=== PATIENT | male | born 1985 | race Caucasian/White ===

== ENCOUNTER 2018-04-17 01:47 | Emergency (ER) | payer SELFPAY ==
[~2018-04-17] VITALS: Ht 177.8 cm; Wt 79.4 kg
[~2018-04-17 01:47] MED LIST: AZIT-21; DOXY100C2 PO; OXYC-12 PO
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
--- OUTSIDE RECORDS SUMMARY | 2018-04-17 02:02 | XMS REPORT ---
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 Active Problem Acute pharyngitis 462 Active Problem Other and unspecified noninfectious gastroenteritis and colitis 558.9 Active Problem Depressive disorder, not elsewhere classified 311 Active Problem Unspecified disorders of bursae and tendons in shoulder region 726.10 Active Problem Nausea alone 787.02 Active Problem Amphetamine and other psychostimulant dependence, unspecified abuse 304.40 Active Problem Acute sinusitis, unspecified 461.9 Active Problem Pain in joint, shoulder region 719.41 Active Problem Cervicalgia 723.1 Active Assessment Neck pain 723.1 Active Problem Rash and other nonspecific skin eruption 782.1 Active Problem Diarrhea 787.91 Active Problem Esophageal reflux 530.81 Active Problem Anxiety state, unspecified 300.00 Active Problem Superficial injury of cornea 918.1 Active Problem Unspecified episodic mood disorder 296.90 Active Problem Bipolar disorder, unspecified 296.80 Active Medications Medication Code System Code Instructions Start Date End Date Status Dosage Abilify [facility] [address]-01 2 mg July 06, 2014 1 tablet by Oral route 1 time per day [place] [facility] [address]-81 5-325 MG Orally every 6 hrs Dec 16, 2014 1 tablet as needed Tramadol HCl [facility] [address]-19 50 MG Orally every 6 hrs Jan 04, 2015 1 tablet as needed Omeprazole [facility] [address]-01 40 MG Orally Once a day 1 capsule Procedures Procedure Coding System Code Date Office Visit, Est Pt., Level 3 CPT-4 21124 Jan 04, 2015 Vital Signs Date/Time: Jan 04, 2015 Temperature 98 F Weight 236.8 lbs Height 70 in BMI 33.97 Index Blood Pressure Diastolic 92 mmHg Blood Pressure Systolic 140 mmHg Cardiac Monitoring Heart Rate 84 bpm Results No Known Results Summary Purpose eClinicalWorks Submission
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
--- OUTSIDE RECORDS SUMMARY | 2018-04-17 02:03 | XMS REPORT ---
Author Author TC AKINS [facility] eClinical[employer] Address Unknown Phone Unavailable Care Team Providers Care Laborer [employer] Name Role Phone TC AKINS CP Unavailable Allergies No Known Allergies Problems Problem Type Condition Code Onset Dates Condition Status Problem Other and unspecified noninfectious gastroenteritis and colitis 558.9 Active Problem Acute sinusitis, unspecified 461.9 Active Problem Acute pharyngitis 462 Active Problem Other stimulant dependence, 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 Active Problem Nausea alone 787.02 Active Problem Bipolar II disorder F31.81 Active Problem Pain in joint, shoulder region 719.41 Active Problem Cervicalgia 723.1 Active Problem Depressive disorder, not elsewhere classified 311 Active Problem Unspecified disorders of bursae and tendons in shoulder region 726.10 Active Problem Anxiety state, unspecified 300.00 Active Problem Diarrhea 787.91 Active Problem Esophageal reflux 530.81 Active Problem Rash and other nonspecific skin eruption 782.1 Active Problem Superficial injury of cornea 918.1 Active Medications Medication Code System Code Instructions Start Date End Date Status Dosage Tramadol HCl [facility] [id number] 50 MG Orally every 6 hrs Jan 04, 2015 1 tablet as needed Results No Known Results Summary Purpose eClinicalWorks Submission
--- OUTSIDE RECORDS SUMMARY | 2018-04-17 02:03 | XMS REPORT ---
Author Author AXEL ETIENNE [facility] eClinical[employer] Address Unknown Phone Unavailable Care Team Providers Care Operating Cost Clerk Name Role Phone AXEL ETIENNE CP Unavailable Allergies No Known Allergies Problems [...] and tendons in shoulder region 726.10 Active Assessment Other stimulant dependence, 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 Active Problem Anxiety state, unspecified 300.00 Active Problem Diarrhea 787.91 Active Assessment Bipolar II disorder F31.81 Active Problem Esophageal reflux 530.81 Active Problem Rash and other nonspecific skin eruption 782.1 Active Problem Superficial injury of cornea 918.1 Active Medications No Known Medications Procedures Procedure Coding System Code Date Psychotherapy, patient &/family, 45 minutes, established patient CPT-4 26512 Mar 31, 2015 Results No Known Results Summary Purpose eClinicalWorks Submission
--- OUTSIDE RECORDS SUMMARY | 2018-04-17 02:04 | XMS REPORT ---
Author Author AXEL ETIENNE [facility] eClinicalWorks Address Unknown Phone Unavailable Care Team Providers Care Interface Designer Name Role Phone AXEL ETIENNE CP Unavailable Allergies No Known Allergies Problems Problem Type Condition Code Onset Dates Condition Status Problem Superficial injury of cornea 918.1 Active Problem Acute pharyngitis 462 Active Problem Other and unspecified noninfectious gastroenteritis and colitis 558.9 Active Problem Other stimulant dependence, 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 Active Problem Nausea alone 787.02 Active Problem Bipolar II disorder F31.81 Active Problem Cervicalgia 723.1 Active Problem Acute sinusitis, unspecified 461.9 Active Problem Unspecified disorders of bursae and tendons in shoulder region 726.10 Active Problem Pain in joint, shoulder region 719.41 Active Assessment Bipolar II disorder F31.81 Active Problem Rash and other nonspecific skin eruption 782.1 Active Problem Diarrhea 787.91 Active Assessment Other stimulant dependence, 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 Active Problem Esophageal reflux 530.81 Active Medications No Known Medications Procedures Procedure Coding System Code Date Psychotherapy, patient &/family, 45 minutes, established patient CPT-4 72633 May 27, 2015 Results No Known Results Summary Purpose eClinicalWorks Submission
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
--- OUTSIDE RECORDS SUMMARY | 2018-04-17 02:04 | XMS REPORT ---
Author Author AXEL ETIENNE [facility] eClinicalWorks Address Unknown Phone Unavailable Care Team Providers Care Pigment Pumper Name Role Phone AXEL ETIENNE CP Unavailable Allergies No Known Allergies Problems Problem Type Condition Code Onset Dates Condition Status Problem Drug [...] 719.41 Active Problem Cervicalgia 723.1 Active Assessment Bipolar II disorder 296.89 Active Problem Rash and other nonspecific skin eruption 782.1 Active Assessment Amphetamine and other psychostimulant dependence, unspecified abuse 304.40 Active Problem Diarrhea 787.91 Active Problem Esophageal reflux 530.81 Active Problem Anxiety state, unspecified 300.00 Active Problem Superficial injury of cornea 918.1 Active Problem Unspecified episodic mood disorder 296.90 Active Problem Bipolar disorder, unspecified 296.80 Active Medications No Known Medications Procedures Procedure Coding System Code Date Psychotherapy, patient &/family, 30 minutes, established patient CPT-4 33513 Feb 10, 2015 Results No Known Results Summary Purpose eClinicalWorks Submission
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
--- OUTSIDE RECORDS SUMMARY | 2018-04-17 02:04 | XMS REPORT ---
Author Author TC AKINS [facility] eClinicalWorks Address Unknown Phone Unavailable Care Team Providers Care Figure Refinisher And Repairer Name Role Phone TC AKINS CP Unavailable [...] Date End Date Status Dosage Tramadol HCl [facility] [place] [address]-50 50 MG Orally every 6 hrs Jan 04, 2015 1 tablet as needed Results No Known Results Summary Purpose eClinicalWorks Submission
--- OUTSIDE RECORDS SUMMARY | 2018-04-17 02:05 | XMS REPORT ---
Author Author AXEL ETIENNE [facility] eClinicalWorks Address Unknown Phone Unavailable Care Team Providers Care Refinish Technician Name Role Phone AXEL ETIENNE CP Unavailable [...] patient &/family, 45 minutes, established patient CPT-4 23991 Mar 24, 2015 Results No Known Results Summary Purpose eClinicalWorks Submission
--- OUTSIDE RECORDS SUMMARY | 2018-04-17 02:05 | XMS REPORT ---
Author Author TC AKINS [facility] eClinicalWorks Address Unknown Phone Unavailable Care Team Providers Care Home Stager Name Role Phone TC AKINS CP Unavailable [...] Date End Date Status Dosage Tramadol HCl [facility] [address]-66 50 MG Orally every 6 hrs. MUST HAVE APPT FOR FURTHER REFILLS Jan 04, 2015 1 tablet as needed Results No Known Results Summary Purpose eClinicalWorks Submission
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
--- OUTSIDE RECORDS SUMMARY | 2018-04-17 02:05 | XMS REPORT ---
Author Author AXEL ETIENNE [facility] eClinicalWorks Address Unknown Phone Unavailable Care Team Providers Care Service Order Dispatcher Name Role Phone AXEL ETIENNE CP Unavailable Allergies No Known Allergies Problems Problem Type Condition ICD-9 Code Onset [...] patient &/family, 45 minutes, established patient CPT-4 10735 Dec 22, 2014 Results No Known Results Summary Purpose eClinicalWorks Submission
--- OUTSIDE RECORDS SUMMARY | 2018-04-17 02:05 | XMS REPORT ---
Author Author AXEL ETIENNE [facility] eClinicalWorks Address Unknown Phone Unavailable Care Team Providers Care Pathological Technician Name Role Phone AXEL ETIENNE CP [...] patient &/family, 45 minutes, established patient CPT-4 04826 Mar 03, 2015 Results No Known Results Summary Purpose eClinicalWorks Submission
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
--- OUTSIDE RECORDS SUMMARY | 2018-04-17 02:06 | XMS REPORT ---
Author Author YAHAIRA ALATORRE [facility] eClinicalWorks Address Unknown Phone Unavailable Care Team Providers Care Event Coordinator Name Role Phone YAHAIRA ALATORRE CP Unavailable Allergies No Known Allergies Problems [...] 719.41 Active Problem Cervicalgia 723.1 Active Problem Rash and other nonspecific skin eruption 782.1 Active Problem Diarrhea 787.91 Active Problem Esophageal reflux 530.81 Active Problem Anxiety state, unspecified 300.00 Active Problem Superficial injury of cornea 918.1 Active Problem Unspecified episodic mood disorder 296.90 Active Problem Bipolar disorder, unspecified 296.80 Active Medications No Known Medications Results No Known Results Summary Purpose eClinicalWorks Submission
--- OUTSIDE RECORDS SUMMARY | 2018-04-17 02:06 | XMS REPORT ---
Author Author AXEL ETIENNE [facility] eClinicalWorks Address Unknown Phone Unavailable Care Team Providers Care Examination Proctor Name Role Phone AXEL ETIENNE CP Unavailable [...] patient &/family, 45 minutes, established patient CPT-4 66791 Dec 16, 2014 Results No Known Results Summary Purpose eClinicalWorks Submission
--- OUTSIDE RECORDS SUMMARY | 2018-04-17 02:07 | XMS REPORT | Continuity of Care Document ---
Demographics Preferred Language Unknown Marital Status Unknown Latter-Day Affiliation Unknown Race Unknown Ethnic Group Unknown Author Author [facility] Organization [facility] Address Unknown Phone Unavailable Allergies There is no data. Medications There is no data. 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, OPIOID ABUSE, IN REMISSION 01/21/2009 ALBA EVANS APRN 724.3 SCIATICA 01/21/2009 054.10 GENITAL HERPES, UNSPECIFIED 01/21/2009 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, OPIOID ABUSE, IN REMISSION 01/21/2009 724.3 SCIATICA 01/21/2009 ARYAN TERAN APRN R 054.10 GENITAL HERPES, UNSPECIFIED 01/21/2009 ARYAN TERAN APRN R 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, OPIOID ABUSE, IN REMISSION 01/21/2009 ARYAN TERAN APRN R 724.3 SCIATICA 01/21/2009 AXEL ETIENNE PSYD L 054.10 GENITAL HERPES, UNSPECIFIED 01/21/2009 AXEL ETIENNE PSYD L 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, OPIOID ABUSE, IN REMISSION 01/21/2009 AXEL ETIENNE PSYD L 724.3 SCIATICA 01/21/2009 MARV MANUEL DO 054.10 GENITAL HERPES, UNSPECIFIED 01/21/[address] K 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, OPIOID ABUSE, IN REMISSION 01/21/[address] MARV K 724.3 SCIATICA 01/21/2009 ARYAN TERAN APRN R 054.10 GENITAL HERPES, UNSPECIFIED 01/21/2009 ARYAN TERAN APRN R 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, OPIOID ABUSE, IN REMISSION 01/21/2009 ARYAN TERAN APRN R 724.3 SCIATICA 01/21/2009 TC AKINS APRN T 054.10 GENITAL HERPES, UNSPECIFIED 01/21/2009 TC AKINS APRN T 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, OPIOID ABUSE, IN REMISSION 01/21/2009 TC AKINS APRN T 724.3 SCIATICA 01/21/2009 AXEL ETIENNE PSYD ANN L 054.10 GENITAL HERPES, UNSPECIFIED 01/21/2009 AXEL ETIENNE PSYD ANN L 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, OPIOID ABUSE, IN REMISSION 01/21/2009 AXEL ETIENNE PSYD ANN L 724.3 SCIATICA 01/21/2009 EDNA SAHNI APRNINA R 054.10 GENITAL HERPES, UNSPECIFIED 01/21/2009 ERIK SAHNI APRN R 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, OPIOID ABUSE, IN REMISSION 01/21/2009 EDNA SAHNI APRNINA R 724.3 SCIATICA 01/21/2009 AXEL ETIENNE PSYD ANN L 054.10 GENITAL HERPES, UNSPECIFIED 01/21/2009 AXEL ETIENNE PSYD ANN L 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, OPIOID ABUSE, IN REMISSION 01/21/2009 AXEL ETIENNE PSYD ANN L 724.3 SCIATICA 01/21/2009 WHITE DDS, ALLEGRA D 054.10 GENITAL HERPES, UNSPECIFIED 01/21/2009 WHITE DDS, ALLEGRA D 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, OPIOID ABUSE, IN REMISSION 01/21/2009 WHITE DDS, ALLEGRA D 724.3 SCIATICA 01/21/2009 BORA REES ERIK R 054.10 GENITAL HERPES, UNSPECIFIED 01/21/2009 BORA REES ERIK R 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, OPIOID ABUSE, IN REMISSION 01/21/2009 BORA OLIVAREZN, ERIK R 724.3 SCIATICA 01/21/2009 LARA DDS, JOSE 054.10 GENITAL HERPES, UNSPECIFIED 01/21/2009 LARA DDS, JOSE 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, OPIOID ABUSE, IN REMISSION 01/21/2009 LARA DDS, JOSE 724.3 SCIATICA 01/21/2009 MANUEL DO, MRAV K 054.10 GENITAL HERPES, UNSPECIFIED 01/21/2009 MANUEL DO, MARV K 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, OPIOID ABUSE, IN REMISSION 01/21/2009 MANUEL DO, MARV K 724.3 SCIATICA 01/21/2009 AXEL ETIENNE PSYD ANN L 054.10 GENITAL HERPES, UNSPECIFIED 01/21/2009 AXEL ETIENNE PSYD ANN L 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, OPIOID ABUSE, IN REMISSION 01/21/2009 AXEL ETIENNE PSYD ANN L 724.3 SCIATICA 01/21/2009 AXEL ETIENNE PSYD ANN L 054.10 GENITAL HERPES, UNSPECIFIED 01/21/2009 AXEL ETIENNE PSYD ANN L 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, OPIOID ABUSE, IN REMISSION 01/21/2009 AXEL ETIENNE PSYD ANN L 724.3 SCIATICA 01/21/2009 BORA REES, ERIK R 054.10 GENITAL HERPES, UNSPECIFIED 01/21/2009 BORA REES, ERIK R 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, OPIOID ABUSE, IN REMISSION 01/21/2009 BORA REES, ERIK R 724.3 SCIATICA 01/21/2009 AXEL ETIENNE PSYD ANN L 054.10 GENITAL HERPES, UNSPECIFIED 01/21/2009 AXEL ETIENNE PSYD ANN L 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, OPIOID ABUSE, IN REMISSION 01/21/2009 AXEL ETIENNE PSYD ANN L 724.3 SCIATICA 01/21/2009 LAUREN PRICE APRN 054.10 GENITAL HERPES, UNSPECIFIED 01/21/2009 LAUREN PRICE APRN 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, OPIOID ABUSE, IN REMISSION 01/21/2009 LAUREN PRICE APRN 724.3 SCIATICA 01/21/2009 AXEL ETIENNE PSYD L 054.10 GENITAL HERPES, UNSPECIFIED 01/21/2009 AXEL ETIENNE PSYD ANN L 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, OPIOID ABUSE, IN REMISSION 01/21/2009 AXEL ETIENNE PSYD ANN L 724.3 SCIATICA 01/21/2009 YEISON JUAREZ MD 054.10 GENITAL HERPES, UNSPECIFIED 01/21/2009 YEISON JUAREZ MD 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, OPIOID ABUSE, IN REMISSION 01/21/2009 YEISON JUAREZ MD 724.3 SCIATICA 01/21/2009 TC AKINS APRN 054.10 GENITAL HERPES, UNSPECIFIED 01/21/2009 TC AKINS APRN 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, OPIOID ABUSE, IN REMISSION 01/21/2009 TC AKINS APRN 724.3 SCIATICA 01/21/2009 AXEL ETIENNE PSYD ANN L 054.10 GENITAL HERPES, UNSPECIFIED 01/21/2009 AXEL ETIENNE PSYD ANN L 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, OPIOID ABUSE, IN REMISSION 01/21/2009 AXEL ETIENNE PSYD ANN L 724.3 SCIATICA 01/21/2009 TC AKINS APRN 054.10 GENITAL HERPES, UNSPECIFIED 01/21/2009 TC AKINS APRN 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, OPIOID ABUSE, IN REMISSION 01/21/2009 TC AKINS APRN 724.3 SCIATICA 12/16/2009 461.0 ACUTE MAXILLARY SINUSITIS 12/16/2009 989.5 TOXIC EFFECT OF OTHER SUBSTANCES, CHIEFLY NONMEDICINAL TO SOURCE, VENOM 12/16/2009 461.0 ACUTE MAXILLARY SINUSITIS 12/16/2009 989.5 TOXIC EFFECT OF OTHER SUBSTANCES, CHIEFLY NONMEDICINAL TO SOURCE, VENOM 12/16/2009 461.0 ACUTE MAXILLARY SINUSITIS 12/16/2009 989.5 TOXIC EFFECT OF OTHER SUBSTANCES, CHIEFLY NONMEDICINAL TO SOURCE, VENOM 12/16/2009 ALBA EVANS APRN 461.0 ACUTE MAXILLARY SINUSITIS 12/16/2009 ALBA EVANS APRN 989.5 TOXIC EFFECT OF OTHER SUBSTANCES, CHIEFLY NONMEDICINAL TO SOURCE, VENOM 12/16/2009 461.0 ACUTE MAXILLARY SINUSITIS 12/16/2009 989.5 TOXIC EFFECT OF OTHER SUBSTANCES, CHIEFLY NONMEDICINAL TO SOURCE, VENOM 12/16/2009 ARYAN TERAN APRN R 461.0 ACUTE MAXILLARY SINUSITIS 12/16/2009 ARYAN TERAN APRN R 989.5 TOXIC EFFECT OF OTHER SUBSTANCES, CHIEFLY NONMEDICINAL TO SOURCE, VENOM 12/16/2009 AXEL ETIENNE PSYD L 461.0 ACUTE MAXILLARY SINUSITIS 12/16/2009 AXEL ETIENNE PSYD L 989.5 TOXIC EFFECT OF OTHER SUBSTANCES, CHIEFLY NONMEDICINAL TO SOURCE, VENOM 12/16/2009 MANUEL DO MARV K 461.0 ACUTE MAXILLARY SINUSITIS 12/16/2009 MANUEL DO, MARV K 989.5 TOXIC EFFECT OF OTHER SUBSTANCES, CHIEFLY NONMEDICINAL TO SOURCE, VENOM 12/16/2009 ARYAN TERAN APRN R 461.0 ACUTE MAXILLARY SINUSITIS 12/16/2009 ARYAN TERAN APRN R 989.5 TOXIC EFFECT OF OTHER SUBSTANCES, CHIEFLY NONMEDICINAL TO SOURCE, VENOM 12/16/2009 TC AKINS APRN 461.0 ACUTE MAXILLARY SINUSITIS 12/16/2009 TC AKINS APRN 989.5 TOXIC EFFECT OF OTHER SUBSTANCES, CHIEFLY NONMEDICINAL TO SOURCE, VENOM 12/16/2009 AXEL ETIENNE PSYD L 461.0 ACUTE MAXILLARY SINUSITIS 12/16/2009 AXEL ETIENNE PSYD L 989.5 TOXIC EFFECT OF OTHER SUBSTANCES, CHIEFLY NONMEDICINAL TO SOURCE, VENOM 12/16/2009 BORA REES ERIK R 461.0 ACUTE MAXILLARY SINUSITIS 12/16/2009 EDNA SAHNI APRNINA R 989.5 TOXIC EFFECT OF OTHER SUBSTANCES, CHIEFLY NONMEDICINAL TO SOURCE, VENOM 12/16/2009 AXEL ETIENNE PSYD L 461.0 ACUTE MAXILLARY SINUSITIS 12/16/2009 AXEL ETIENNE PSYD L 989.5 TOXIC EFFECT OF OTHER SUBSTANCES, CHIEFLY NONMEDICINAL TO SOURCE, VENOM 12/16/2009 WHITE DDS, ALLEGRA D 461.0 ACUTE MAXILLARY SINUSITIS 12/16/2009 WHITE DDS, ALLEGRA D 989.5 TOXIC EFFECT OF OTHER SUBSTANCES, CHIEFLY NONMEDICINAL TO SOURCE, VENOM 12/16/2009 BORA LOSS PREVENTION LEADER, ERIK R 461.0 ACUTE MAXILLARY SINUSITIS 12/16/2009 BORA LOSS PREVENTION LEADER, ERIK R 989.5 TOXIC EFFECT OF OTHER SUBSTANCES, CHIEFLY NONMEDICINAL TO SOURCE, VENOM 12/16/2009 LARA DDS, JOSE 461.0 ACUTE MAXILLARY SINUSITIS 12/16/2009 LARA DDS, JOSE 989.5 TOXIC EFFECT OF OTHER SUBSTANCES, CHIEFLY NONMEDICINAL TO SOURCE, VENOM 12/16/2009 MANUEL DO, MARV K 461.0 ACUTE MAXILLARY SINUSITIS 12/16/2009 MANUEL DO, MARV K 989.5 TOXIC EFFECT OF OTHER SUBSTANCES, CHIEFLY NONMEDICINAL TO SOURCE, VENOM 12/16/2009 AXEL ETIENNE PSYD ANN L 461.0 ACUTE MAXILLARY SINUSITIS 12/16/2009 AXEL ETIENNE PSYD ANN L 989.5 TOXIC EFFECT OF OTHER SUBSTANCES, CHIEFLY NONMEDICINAL TO SOURCE, VENOM 12/16/2009 AXEL ETIENNE PSYD ANN L 461.0 ACUTE MAXILLARY SINUSITIS 12/16/2009 AXEL ETIENNE PSYD ANN L 989.5 TOXIC EFFECT OF OTHER SUBSTANCES, CHIEFLY NONMEDICINAL TO SOURCE, VENOM 12/16/2009 BORA LOSS PREVENTION LEADER, ERIK R 461.0 ACUTE MAXILLARY SINUSITIS 12/16/2009 BORA OLIVAREZN, ERIK R 989.5 TOXIC EFFECT OF OTHER SUBSTANCES, CHIEFLY NONMEDICINAL TO SOURCE, VENOM 12/16/2009 AXEL ETIENNE PSYD ANN L 461.0 ACUTE MAXILLARY SINUSITIS 12/16/2009 AXEL ETIENNE PSYD ANN L 989.5 TOXIC EFFECT OF OTHER SUBSTANCES, CHIEFLY NONMEDICINAL TO SOURCE, VENOM 12/16/2009 LAUREN PRICE APRN 461.0 ACUTE MAXILLARY SINUSITIS 12/16/2009 LAUREN PRICE APRN 989.5 TOXIC EFFECT OF OTHER SUBSTANCES, CHIEFLY NONMEDICINAL TO SOURCE, VENOM 12/16/2009 AXEL ETIENNE PSYD ANN L 461.0 ACUTE MAXILLARY SINUSITIS 12/16/2009 AXEL ETIENNE PSYD L 989.5 TOXIC EFFECT OF OTHER SUBSTANCES, CHIEFLY NONMEDICINAL TO SOURCE, VENOM 12/16/2009 YEISON JUAREZ MD 461.0 ACUTE MAXILLARY SINUSITIS 12/16/2009 YEISON JUAREZ MD 989.5 TOXIC EFFECT OF OTHER SUBSTANCES, CHIEFLY NONMEDICINAL TO SOURCE, VENOM 12/16/2009 TC AKINS APRN 461.0 ACUTE MAXILLARY SINUSITIS 12/16/2009 TC AKINS APRN 989.5 TOXIC EFFECT OF OTHER SUBSTANCES, CHIEFLY NONMEDICINAL TO SOURCE, VENOM 12/16/2009 AXEL ETIENNE PSYD L 461.0 ACUTE MAXILLARY SINUSITIS 12/16/2009 AXEL ETIENNE PSYD L 989.5 TOXIC EFFECT OF OTHER SUBSTANCES, CHIEFLY NONMEDICINAL TO SOURCE, VENOM 12/16/2009 TC AKINS APRN T 461.0 ACUTE MAXILLARY SINUSITIS 12/16/2009 TC AKINS APRN 989.5 TOXIC EFFECT OF OTHER SUBSTANCES, CHIEFLY NONMEDICINAL TO SOURCE, VENOM 12/20/2009 682.9 CELLULITIS AND ABSCESS OF UNSPECIFIED SITES 12/20/2009 682.9 CELLULITIS AND ABSCESS OF UNSPECIFIED SITES 12/20/2009 682.9 CELLULITIS AND ABSCESS OF UNSPECIFIED SITES 12/20/2009 ALBA EVANS APRN 682.9 CELLULITIS AND ABSCESS OF UNSPECIFIED SITES 12/20/2009 682.9 CELLULITIS AND ABSCESS OF UNSPECIFIED SITES 12/20/2009 ARYAN TERAN APRN R 682.9 CELLULITIS AND ABSCESS OF UNSPECIFIED SITES 12/20/2009 AXEL ETIENNE PSYD ANN L 682.9 CELLULITIS AND ABSCESS OF UNSPECIFIED SITES 12/20/2009 MARV MANUEL DO 682.9 CELLULITIS AND ABSCESS OF UNSPECIFIED SITES 12/20/2009 ARYAN TERAN APRN R 682.9 CELLULITIS AND ABSCESS OF UNSPECIFIED SITES 12/20/2009 TC AKINS APRN T 682.9 CELLULITIS AND ABSCESS OF UNSPECIFIED SITES 12/20/2009 AXEL ETIENNE PSYD ANN L 682.9 CELLULITIS AND ABSCESS OF UNSPECIFIED SITES 12/20/2009 BORA LOSS PREVENTION LEADER, ERIK R 682.9 CELLULITIS AND ABSCESS OF UNSPECIFIED SITES 12/20/2009 AXEL ETIENNE PSYD L 682.9 CELLULITIS AND ABSCESS OF UNSPECIFIED SITES 12/20/2009 SUMIT DDS, ALLEGRA Guillaume 682.9 CELLULITIS AND ABSCESS OF UNSPECIFIED SITES 12/20/2009 BORA OLIVAREZN, ERIK R 682.9 CELLULITIS AND ABSCESS OF UNSPECIFIED SITES 12/20/2009 MARCO GUTIERREZS, JOSE 682.9 CELLULITIS AND ABSCESS OF UNSPECIFIED SITES 12/20/2009 MARV MANUEL DO 682.9 CELLULITIS AND ABSCESS OF UNSPECIFIED SITES 12/20/2009 AXEL ETIENNE PSYD L 682.9 CELLULITIS AND ABSCESS OF UNSPECIFIED SITES 12/20/2009 AXEL ETIENNE PSYD L 682.9 CELLULITIS AND ABSCESS OF UNSPECIFIED SITES 12/20/2009 ERIK SAHNI APRN R 682.9 CELLULITIS AND ABSCESS OF UNSPECIFIED SITES 12/20/2009 AXEL ETIENNE PSYD L 682.9 CELLULITIS AND ABSCESS OF UNSPECIFIED SITES 12/20/2009 LAUREN PRICE APRN 682.9 CELLULITIS AND ABSCESS OF UNSPECIFIED SITES 12/20/2009 AXEL ETIENNE PSYD L 682.9 CELLULITIS AND ABSCESS OF UNSPECIFIED SITES 12/20/2009 YEISON JUAREZ MD 682.9 CELLULITIS AND ABSCESS OF UNSPECIFIED SITES 12/20/2009 TC AKINS APRN 682.9 CELLULITIS AND ABSCESS OF UNSPECIFIED SITES 12/20/2009 AXEL ETIENNE PSYD 682.9 CELLULITIS AND ABSCESS OF UNSPECIFIED SITES 12/20/2009 TC AKINS APRN 682.9 CELLULITIS AND ABSCESS OF UNSPECIFIED SITES 12/22/2009 V58.31 WOUND DRESSING 12/22/2009 V58.31 WOUND DRESSING 12/22/2009 V58.31 WOUND DRESSING 12/22/2009 ALBA EVANS APRN V58.31 WOUND DRESSING 12/22/2009 V58.31 WOUND DRESSING 12/22/2009 ARYAN TERAN APRN V58.31 WOUND DRESSING 12/22/2009 AXEL ETIENNE PSYD L V58.31 WOUND DRESSING 12/22/2009 MANUEL DO, MARV K V58.31 WOUND DRESSING 12/22/2009 ARYAN TERAN APRN R V58.31 WOUND DRESSING 12/22/2009 TC AKINS APRN V58.31 WOUND DRESSING 12/22/2009 AXEL ETIENNE PSYD L V58.31 WOUND DRESSING 12/22/2009 BORA REES, ERIK R V58.31 WOUND DRESSING 12/22/2009 AXEL ETIENNE PSYD L V58.31 WOUND DRESSING 12/22/2009 SUMIT DDS, ALLEGRA Guillaume V58.31 WOUND DRESSING 12/22/2009 BORA LOSS PREVENTION LEADER, ERIK R V58.31 WOUND DRESSING 12/22/2009 LARA DDS, JOSE V58.31 WOUND DRESSING 12/22/2009 MARV MANUEL DO K V58.31 WOUND DRESSING 12/22/2009 AXEL ETIENNE PSYD L V58.31 WOUND DRESSING 12/22/2009 AXEL ETIENNE PSYD L V58.31 WOUND DRESSING 12/22/2009 BORA REES, ERIK R V58.31 WOUND DRESSING 12/22/2009 AXEL ETIENNE PSYD L V58.31 WOUND DRESSING 12/22/2009 LAUREN PRICE APRN V58.31 WOUND DRESSING 12/22/2009 AXEL ETIENNE PSYD L V58.31 WOUND DRESSING 12/22/2009 YEISON JUAREZ MD V58.31 WOUND DRESSING 12/22/2009 TC AKINS APRN V58.31 WOUND DRESSING 12/22/2009 AXEL ETIENNE PSYD V58.31 WOUND DRESSING 12/22/2009 TC AKINS APRN V58.31 WOUND DRESSING 12/28/2009 894.0 WOUND OPEN LOWER LIMB 12/28/2009 894.0 WOUND OPEN LOWER LIMB 12/28/2009 894.0 WOUND OPEN LOWER LIMB 12/28/2009 ALBA EVANS APRN 894.0 WOUND OPEN LOWER LIMB 12/28/2009 894.0 WOUND OPEN LOWER LIMB 12/28/2009 ARYAN TERAN APRN 894.0 WOUND OPEN LOWER LIMB 12/28/2009 AXEL ETIENNE PSYD 894.0 WOUND OPEN LOWER LIMB 12/28/2009 MARV MANUEL DO 894.0 WOUND OPEN LOWER LIMB 12/28/2009 ARYAN TERAN APRN R 894.0 WOUND OPEN LOWER LIMB 12/28/2009 TC AKINS APRN T 894.0 WOUND OPEN LOWER LIMB 12/28/2009 AXEL ETIENNE PSYD L 894.0 WOUND OPEN LOWER LIMB 12/28/2009 BORA REES, ERIK R 894.0 WOUND OPEN LOWER LIMB 12/28/2009 AXEL ETIENNE PSYD L 894.0 WOUND OPEN LOWER LIMB 12/28/2009 SUMIT DDS, ALLEGRA Guillaume 894.0 WOUND OPEN LOWER LIMB 12/28/2009 BORA REES, ERIK R 894.0 WOUND OPEN LOWER LIMB 12/28/2009 MARCO GUTIERREZS, JOSE 894.0 WOUND OPEN LOWER LIMB 12/28/2009 MARV MANUEL DO 894.0 WOUND OPEN LOWER LIMB 12/28/2009 AXEL ETIENNE PSYD L 894.0 WOUND OPEN LOWER LIMB 12/28/2009 AXEL ETIENNE PSYD L 894.0 WOUND OPEN LOWER LIMB 12/28/2009 BORA REES, ERIK R 894.0 WOUND OPEN LOWER LIMB 12/28/2009 AXEL ETIENNE PSYD L 894.0 WOUND OPEN LOWER LIMB 12/28/2009 LAUREN PRICE APRN 894.0 WOUND OPEN LOWER LIMB 12/28/2009 AXEL ETIENNE PSYD L 894.0 WOUND OPEN LOWER LIMB 12/28/2009 YEISON JUAREZ MD 894.0 WOUND OPEN LOWER LIMB 12/28/2009 TC AKINS APRN T 894.0 WOUND OPEN LOWER LIMB 12/28/2009 AXEL ETIENNE PSYD L 894.0 WOUND OPEN LOWER LIMB 12/28/2009 TC AKINS APRN T 894.0 WOUND OPEN LOWER LIMB 06/18/2012 530.81 ESOPHAGEAL REFLUX 06/18/2012 787.91 DIARRHEA 06/18/2012 530.81 ESOPHAGEAL REFLUX 06/18/2012 787.91 DIARRHEA 06/18/2012 ALBA EVANS APRN 530.81 ESOPHAGEAL REFLUX 06/18/2012 ALBA EVANS APRN 787.91 DIARRHEA 06/18/2012 530.81 ESOPHAGEAL REFLUX 06/18/2012 787.91 DIARRHEA 06/18/2012 TERAN LOSS PREVENTION LEADER, ARYAN R 530.81 ESOPHAGEAL REFLUX 06/18/2012 PARUL OLIVAREZN, ARYAN R 787.91 DIARRHEA 06/18/2012 AXEL ETIENNE PSYD L 530.81 ESOPHAGEAL REFLUX 06/18/2012 AXEL ETIENNE PSYD L 787.91 DIARRHEA 06/18/2012 MANUEL DO, MARV K 530.81 ESOPHAGEAL REFLUX 06/18/2012 MANUEL DO, MARV K 787.91 DIARRHEA 06/18/2012 PARUL REES ARYAN R 530.81 ESOPHAGEAL REFLUX 06/18/2012 PARUL REES ARYAN R 787.91 DIARRHEA 06/18/2012 TASHI REES TC T 530.81 ESOPHAGEAL REFLUX 06/18/2012 TASHI REES TC T 787.91 DIARRHEA 06/18/2012 AXEL ETIENNE PSYD L 530.81 ESOPHAGEAL REFLUX 06/18/2012 AXEL ETIENNE PSYD L 787.91 DIARRHEA 06/18/2012 BORA REES ERIK R 530.81 ESOPHAGEAL REFLUX 06/18/2012 BORA REES ERIK R 787.91 DIARRHEA 06/18/2012 AXEL ETIENNE PSYD L 530.81 ESOPHAGEAL REFLUX 06/18/2012 AXEL ETIENNE PSYD L 787.91 DIARRHEA 06/18/2012 WHITE DDS, ALLEGRA D 530.81 ESOPHAGEAL REFLUX 06/18/2012 WHITE DDS, ALLEGRA D 787.91 DIARRHEA 06/18/2012 BORA REES, ERIK R 530.81 ESOPHAGEAL REFLUX 06/18/2012 BORA REES, ERIK R 787.91 DIARRHEA 06/18/2012 LARA DDS, JOSE 530.81 ESOPHAGEAL REFLUX 06/18/2012 LARA DDS, JOSE 787.91 DIARRHEA 06/18/2012 MANUEL DO, MARV K 530.81 ESOPHAGEAL REFLUX 06/18/2012 MANUEL DO, MARV K 787.91 DIARRHEA 06/18/2012 AXEL ETIENNE PSYD L 530.81 ESOPHAGEAL REFLUX 06/18/2012 AXEL ETIENNE PSYD L 787.91 DIARRHEA 06/18/2012 AXEL ETIENNE PSYD L 530.81 ESOPHAGEAL REFLUX 06/18/2012 AXEL ETIENNE PSYD L 787.91 DIARRHEA 06/18/2012 ERIK SAHNI APRN R 530.81 ESOPHAGEAL REFLUX 06/18/2012 BORA REES ERIK R 787.91 DIARRHEA 06/18/2012 AXEL ETIENNE PSYD ANN L 530.81 ESOPHAGEAL REFLUX 06/18/2012 AXEL ETIENNE PSYD ANN L 787.91 DIARRHEA 06/18/2012 LAUREN PRICE APRN D 530.81 ESOPHAGEAL REFLUX 06/18/2012 LAUREN PRICE APRN 787.91 DIARRHEA 06/18/2012 AXEL ETIENNE PSYD ANN L 530.81 ESOPHAGEAL REFLUX 06/18/2012 AXEL ETIENNE PSYD ANN L 787.91 DIARRHEA 06/18/2012 ANN HSU, YEISON 530.81 ESOPHAGEAL REFLUX 06/18/2012 ANN HSU, YEISON 787.91 DIARRHEA 06/18/2012 TASHI REES TC T 530.81 ESOPHAGEAL REFLUX 06/18/2012 TASHI REES TC T 787.91 DIARRHEA 06/18/2012 AXEL ETIENNE PSYD ANN L 530.81 ESOPHAGEAL REFLUX 06/18/2012 AXEL ETIENNE PSYD ANN L 787.91 DIARRHEA 06/18/2012 TASHI REES TC T 530.81 ESOPHAGEAL REFLUX 06/18/2012 TASHI REES TC T 787.91 DIARRHEA 07/10/2012 918.1 SUPERFICIAL INJURY - ABRASION OF [place] 07/10/2012 ALBA EVANS APRN 918.1 SUPERFICIAL INJURY - ABRASION OF [place] 07/10/2012 918.1 SUPERFICIAL INJURY - ABRASION OF [place] 07/10/2012 ARYAN TERAN APRN R 918.1 SUPERFICIAL INJURY - ABRASION OF [place] 07/10/2012 AXEL ETIENNE PSYD ANN L 918.1 SUPERFICIAL INJURY - ABRASION OF [place] 07/10/2012 MARV MANUEL DO 918.1 SUPERFICIAL INJURY - ABRASION OF [place] 07/10/2012 ARYAN TERAN APRN R 918.1 SUPERFICIAL INJURY - ABRASION OF [place] 07/10/2012 TC AKINS APRN T 918.1 SUPERFICIAL INJURY - ABRASION OF [place] 07/10/2012 AXEL ETIENNE PSYD ANN L 918.1 SUPERFICIAL INJURY - ABRASION OF [place] 07/10/2012 BORA LOSS PREVENTION LEADER, ERIK R 918.1 SUPERFICIAL INJURY - ABRASION OF [place] 07/10/2012 AXEL ETIENNE PSYD L 918.1 SUPERFICIAL INJURY - ABRASION OF [place] 07/10/2012 ALLEGRA ARANA DDS 918.1 SUPERFICIAL INJURY - ABRASION OF [place] 07/10/2012 EDNA SAHNI APRNINA R 918.1 SUPERFICIAL INJURY - ABRASION OF [place] 07/10/2012 JOSE LARA DDS 918.1 SUPERFICIAL INJURY - [place] [place] 07/10/2012 MARV MANUEL DO 918.1 SUPERFICIAL INJURY - [place] [place] 07/10/2012 AXEL ETIENNE PSYD L 918.1 SUPERFICIAL INJURY - [place] [place] 07/10/2012 AXEL ETIENNE PSYD L 918.1 SUPERFICIAL INJURY - [place] [place] 07/10/2012 ERIK SAHNI APRN R 918.1 SUPERFICIAL INJURY - [place] [place] 07/10/2012 AXEL ETIENNE PSYD L 918.1 SUPERFICIAL INJURY - [place] [place] 07/10/2012 LAUREN PRICE APRN 918.1 SUPERFICIAL INJURY - [place] [place] 07/10/2012 AXEL ETIENNE PSYD L 918.1 SUPERFICIAL INJURY - [place] [place] 07/10/2012 YEISON JUAREZ MD 918.1 SUPERFICIAL INJURY - [place] [place] 07/10/2012 TC AKINS APRN 918.1 SUPERFICIAL INJURY - [place] [place] 07/10/2012 AXEL ETIENNE PSYD L 918.1 SUPERFICIAL INJURY - [place] [place] 07/10/2012 TC AKINS APRN 918.1 SUPERFICIAL INJURY - [place] 07/17/2012 ALBA EVANS APRN 296.90 MOOD DISORDER NOS 07/17/2012 296.90 MOOD DISORDER NOS 07/17/2012 ARYAN TERAN APRN 296.90 MOOD DISORDER NOS 07/17/2012 AXEL ETIENNE PSYD L 296.90 MOOD DISORDER NOS 07/17/2012 MARV MANUEL DO K 296.90 MOOD DISORDER NOS 07/17/2012 ARYAN TERAN APRN R 296.90 MOOD DISORDER NOS 07/17/2012 TC AKINS APRN 296.90 MOOD DISORDER NOS 07/17/2012 AXEL ETIENNE PSYD L 296.90 MOOD DISORDER NOS 07/17/2012 BORA REES, ERIK R 296.90 MOOD DISORDER NOS 07/17/2012 AXEL ETIENNE PSYD L 296.90 MOOD DISORDER NOS 07/17/2012 SUMIT DDS, ALLEGRA Guillaume 296.90 MOOD DISORDER NOS 07/17/2012 BORA OLIVAREZN, ERIK R 296.90 MOOD DISORDER NOS 07/17/2012 LARA DDS, JOSE 296.90 MOOD DISORDER NOS 07/17/2012 MANUEL DO, MARV K 296.90 MOOD DISORDER NOS 07/17/2012 AXEL ETIENNE PSYD L 296.90 MOOD DISORDER NOS 07/17/2012 AXEL ETIENNE PSYD L 296.90 MOOD DISORDER NOS 07/17/2012 EDNA SAHNI APRNINA R 296.90 MOOD DISORDER NOS 07/17/2012 AXEL ETIENNE PSYD L 296.90 MOOD DISORDER NOS 07/17/2012 LAUREN PRICE APRN 296.90 MOOD DISORDER NOS 07/17/2012 AXEL ETIENNE PSYD L 296.90 MOOD DISORDER NOS 07/17/2012 YEISON JUAREZ MD 296.90 MOOD DISORDER NOS 07/17/2012 TC AKINS APRN 296.90 MOOD DISORDER NOS 07/17/2012 AXEL ETIENNE PSYD L 296.90 MOOD DISORDER NOS 07/17/2012 TC AKINS APRN 296.90 MOOD DISORDER NOS 07/23/2012 ALBA EVANS APRN 787.02 NAUSEA ALONE 07/23/2012 787.02 NAUSEA ALONE 07/23/2012 ARYAN TERAN APRN 787.02 NAUSEA ALONE 07/23/2012 AXEL ETIENNE PSYD 787.02 NAUSEA ALONE 07/23/2012 MANUEL DO, MARV K 787.02 NAUSEA ALONE 07/23/2012 ARYAN TERAN APRN 787.02 NAUSEA ALONE 07/23/2012 TC AKINS APRN 787.02 NAUSEA ALONE 07/23/2012 AXEL ETIENNE PSYD 787.02 NAUSEA ALONE 07/23/2012 BORA REES ERIK R 787.02 NAUSEA ALONE 07/23/2012 AXEL ETIENNE PSYD 787.02 NAUSEA ALONE 07/23/2012 SUMIT GUTIERREZS, ALLEGRA Guillaume 787.02 NAUSEA ALONE 07/23/2012 ERIK SAHNI APRN R 787.02 NAUSEA ALONE 07/23/2012 MARCO GUTIERREZS, JOSE 787.02 NAUSEA ALONE 07/23/2012 MARV MANUEL DO K 787.02 NAUSEA ALONE 07/23/2012 AXEL ETIENNE PSYD 787.02 NAUSEA ALONE 07/23/2012 AXEL ETIENNE PSYD 787.02 NAUSEA ALONE 07/23/2012 ERIK SAHNI APRN R 787.02 NAUSEA ALONE 07/23/2012 AXEL ETIENNE PSYD 787.02 NAUSEA ALONE 07/23/2012 LAUREN PRICE APRN 787.02 NAUSEA ALONE 07/23/2012 AXEL ETIENNE PSYD 787.02 NAUSEA ALONE 07/23/2012 ANN HSU, YEISON 787.02 NAUSEA ALONE 07/23/2012 TC AKINS APRN 787.02 NAUSEA ALONE 07/23/2012 XAEL ETIENNE PSYD 787.02 NAUSEA ALONE 07/23/2012 TC AKINS APRN 787.02 NAUSEA ALONE 12/19/2012 ARYAN TERAN APRN R 300.00 AN ANXIETY UNSPEC 12/19/2012 AXEL ETIENNE PSYD 300.00 AN ANXIETY UNSPEC 12/19/2012 MARV MANUEL DO K 300.00 AN ANXIETY UNSPEC 12/19/2012 ARYAN TERAN APRN R 300.00 AN ANXIETY UNSPEC 12/19/2012 TC AKINS APRN 300.00 AN ANXIETY UNSPEC 12/19/2012 AXEL ETIENNE PSYD 300.00 AN ANXIETY UNSPEC 12/19/2012 ERIK SAHNI APRN R 300.00 AN ANXIETY UNSPEC 12/19/2012 AXEL ETIENNE PSYD 300.00 AN ANXIETY UNSPEC 12/19/2012 SUMIT DDS, ALLEGRA Guillaume 300.00 AN ANXIETY UNSPEC 12/19/2012 ERIK SAHNI APRN R 300.00 AN ANXIETY UNSPEC 12/19/2012 MARCO GUTIERREZSJOSE 300.00 AN ANXIETY UNSPEC 12/19/2012 MARV MANUEL DO K 300.00 AN ANXIETY UNSPEC 12/19/2012 MCCLEEARY PSYD, KEENAN L 300.00 AN ANXIETY UNSPEC 12/19/2012 AXEL ETIENNE PSYD L 300.00 AN ANXIETY UNSPEC 12/19/2012 ERIK SAHNI APRN R 300.00 AN ANXIETY UNSPEC 12/19/2012 AXEL ETIENNE PSYD L 300.00 AN ANXIETY UNSPEC 12/19/2012 LAUREN PRICE APRN 300.00 AN ANXIETY UNSPEC 12/19/2012 AXEL ETIENNE PSYD L 300.00 AN ANXIETY UNSPEC 12/19/2012 YEISON JUAREZ MD 300.00 AN ANXIETY UNSPEC 12/19/2012 TC AKINS APRN 300.00 AN ANXIETY UNSPEC 12/19/2012 AXEL ETIENNE PSYD L 300.00 AN ANXIETY UNSPEC 12/19/2012 TC AKINS APRN 300.00 AN ANXIETY UNSPEC 02/03/2013 ARYAN TERAN APRN R 462 ACUTE PHARYNGITIS 02/03/2013 DAVID TERAN APRNIA R 558.9 GASTROENTERITIS NONINFECTIOUS 02/03/2013 AXEL ETIENNE PSYD L 462 ACUTE PHARYNGITIS 02/03/2013 AXEL ETIENNE PSYD L 558.9 GASTROENTERITIS NONINFECTIOUS 02/03/2013 MANUEL DO, MARV K 462 ACUTE PHARYNGITIS 02/03/2013 MANUEL DO, MARV K 558.9 GASTROENTERITIS NONINFECTIOUS 02/03/2013 DAVID TERAN APRNIA R 462 ACUTE PHARYNGITIS 02/03/2013 DAVID TERAN APRNIA R 558.9 GASTROENTERITIS NONINFECTIOUS 02/03/2013 TC AKINS APRN T 462 ACUTE PHARYNGITIS 02/03/2013 TC AKINS APRN 558.9 GASTROENTERITIS NONINFECTIOUS 02/03/2013 AXEL ETIENNE PSYD L 462 ACUTE PHARYNGITIS 02/03/2013 AXEL ETIENNE PSYD L 558.9 GASTROENTERITIS NONINFECTIOUS 02/03/2013 BORA REES ERIK R 462 ACUTE PHARYNGITIS 02/03/2013 ERIK SAHNI APRN R 558.9 GASTROENTERITIS NONINFECTIOUS 02/03/2013 AXEL ETIENNE PSYD L 462 ACUTE PHARYNGITIS 02/03/2013 AXEL ETIENNE PSYD L 558.9 GASTROENTERITIS NONINFECTIOUS 02/03/2013 WHITE DDS, ALLEGRA D 462 ACUTE PHARYNGITIS 02/03/2013 WHITE DDS, ALLEGRA Guillaume 558.9 GASTROENTERITIS NONINFECTIOUS 02/03/2013 BORA REES, ERIK R 462 ACUTE PHARYNGITIS 02/03/2013 BORA REES, ERIK R 558.9 GASTROENTERITIS NONINFECTIOUS 02/03/2013 LARA DDS, JOSE 462 ACUTE PHARYNGITIS 02/03/2013 LARA DDS, JOSE 558.9 GASTROENTERITIS NONINFECTIOUS 02/03/2013 MANUEL DO, MARV K 462 ACUTE PHARYNGITIS 02/03/2013 MANUEL DO, MARV K 558.9 GASTROENTERITIS NONINFECTIOUS 02/03/2013 AXEL ETIENNE PSYD L 462 ACUTE PHARYNGITIS 02/03/2013 AXEL ETIENNE PSYD L 558.9 GASTROENTERITIS NONINFECTIOUS 02/03/2013 AXEL ETIENNE PSYD L 462 ACUTE PHARYNGITIS 02/03/2013 AXEL ETIENNE PSYD L 558.9 GASTROENTERITIS NONINFECTIOUS 02/03/2013 BORA REES, ERIK R 462 ACUTE PHARYNGITIS 02/03/2013 EDNA SAHNI APRNINA R 558.9 GASTROENTERITIS NONINFECTIOUS 02/03/2013 AXEL ETIENNE PSYD L 462 ACUTE PHARYNGITIS 02/03/2013 AXEL ETIENNE PSYD L 558.9 GASTROENTERITIS NONINFECTIOUS 02/03/2013 LAUREN PRICE APRN 462 ACUTE PHARYNGITIS 02/03/2013 LAUREN PRICE APRN 558.9 GASTROENTERITIS NONINFECTIOUS 02/03/2013 AXEL ETIENNE PSYD L 462 ACUTE PHARYNGITIS 02/03/2013 AXEL ETIENNE PSYD L 558.9 GASTROENTERITIS NONINFECTIOUS 02/03/2013 YEISON JUAREZ MD 462 ACUTE PHARYNGITIS 02/03/2013 YEISON JUAREZ MD 558.9 GASTROENTERITIS NONINFECTIOUS 02/03/2013 TC AKINS APRN 462 ACUTE PHARYNGITIS 02/03/2013 TC AKINS APRN 558.9 GASTROENTERITIS NONINFECTIOUS 02/03/2013 AXEL ETIENNE PSYD L 462 ACUTE PHARYNGITIS 02/03/2013 AXEL ETIENNE PSYD L 558.9 GASTROENTERITIS NONINFECTIOUS 02/03/2013 TC AKINS APRN T 462 ACUTE PHARYNGITIS 02/03/2013 TC AKINS APRN T 558.9 GASTROENTERITIS NONINFECTIOUS 03/05/2013 ARYAN TERAN APRN 461.9 SINUSITIS ACUTE 03/05/2013 TC AKINS APRN 461.9 SINUSITIS ACUTE 03/05/2013 AXEL ETIENNE PSYD L 461.9 SINUSITIS ACUTE 03/05/2013 ERIK SAHNI APRN R 461.9 SINUSITIS ACUTE 03/05/2013 AXEL ETIENNE PSYD L 461.9 SINUSITIS ACUTE 03/05/2013 ALLEGRA ARANA DDS 461.9 SINUSITIS ACUTE 03/05/2013 EDNA SAHNI APRNINA R 461.9 SINUSITIS ACUTE 03/05/2013 JOSE LARA DDS 461.9 SINUSITIS ACUTE 03/05/2013 MARV MANUEL DO 461.9 SINUSITIS ACUTE 03/05/2013 AXEL ETIENNE PSYD L 461.9 SINUSITIS ACUTE 03/05/2013 AXEL ETIENNE PSYD L 461.9 SINUSITIS ACUTE 03/05/2013 EDNA SAHNI APRNINA R 461.9 SINUSITIS ACUTE 03/05/2013 AXEL ETIENNE PSYD L 461.9 SINUSITIS ACUTE 03/05/2013 LAUREN PRICE APRN 461.9 SINUSITIS ACUTE 03/05/2013 AXEL ETIENNE PSYD L 461.9 SINUSITIS ACUTE 03/05/2013 YEISON JUAREZ MD 461.9 SINUSITIS ACUTE 03/05/2013 TC AKINS APRN 461.9 SINUSITIS ACUTE 03/05/2013 AXEL ETIENNE PSYD L 461.9 SINUSITIS ACUTE 03/05/2013 TC AKINS APRN 461.9 SINUSITIS ACUTE 05/22/2013 TC AKINS APRN 782.1 RASH 05/22/2013 AXEL ETIENNE PSYD L 782.1 RASH 05/22/2013 BORA REES, ERIK R 782.1 RASH 05/22/2013 AXEL ETIENNE PSYD L 782.1 RASH 05/22/2013 WHITE DDS, ALLEGRA D 782.1 RASH 05/22/2013 BORA LOSS PREVENTION LEADER, ERIK R 782.1 RASH 05/22/2013 LARA DDS, JOSE 782.1 RASH 05/22/2013 MANUEL DOMARV K 782.1 RASH 05/22/2013 AXEL ETIENNE PSYD L 782.1 RASH 05/22/2013 AXEL ETIENNE PSYD L 782.1 RASH 05/22/2013 BORA REES, ERIK R 782.1 RASH 05/22/2013 AXEL ETIENNE PSYD L 782.1 RASH 05/22/2013 LAUREN PRICE APRN 782.1 RASH 05/22/2013 AXEL ETIENNE PSYD L 782.1 RASH 05/22/2013 YEISON JUAREZ MD 782.1 RASH 05/22/2013 TC AKINS APRN T 782.1 RASH 05/22/2013 AXEL ETIENNE PSYD L 782.1 RASH 05/22/2013 TC AKNIS APRN T 782.1 RASH 06/05/2013 AXEL ETIENNE PSYD L 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 06/05/2013 ERIK SAHNI APRN R 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 06/05/2013 AXEL ETIENNE PSYD L 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 06/05/2013 SUMIT DDS, ALLEGRA D 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 06/05/2013 ERIK SAHNI APRN R 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 06/05/2013 LARA DDS, JOSE 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 06/05/2013 MANUEL DOMARV K 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 06/05/2013 AXEL ETIENNE PSYD ANN L 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 06/05/2013 AXEL ETIENNE PSYD L 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 06/05/2013 ERIK SAHNI APRN R 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 06/05/2013 AXEL ETIENNE PSYD L 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 06/05/2013 LAUREN PRICE APRN 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 06/05/2013 AXEL ETIENNE PSYD L 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 06/05/2013 YEISON JUAREZ MD 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 06/05/2013 TC AKINS APRN 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 06/05/2013 AXEL ETIENNE PSYD L 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 06/05/2013 TC AKINS APRN 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 07/02/2013 EDNA SAHNI APRNINA R 719.41 PAIN IN JOINT INVOLVING SHOULDER REGION 07/02/2013 BORA REES ERIK R 723.1 CERVICALGIA 07/02/2013 AXEL ETIENNE PSYD L 719.41 PAIN IN JOINT INVOLVING SHOULDER REGION 07/02/2013 AXEL ETIENNE PSYD L 723.1 CERVICALGIA 07/02/2013 ALLEGRA ARANA DDS 719.41 PAIN IN JOINT INVOLVING SHOULDER REGION 07/02/2013 ALLEGRA ARANA DDS 723.1 CERVICALGIA 07/02/2013 BORA REES ERIK R 719.41 PAIN IN JOINT INVOLVING SHOULDER REGION 07/02/2013 BORA REES ERIK R 723.1 CERVICALGIA 07/02/2013 JOSE LARA DDS 719.41 PAIN IN JOINT INVOLVING SHOULDER REGION 07/02/2013 JOSE LARA DDS 723.1 CERVICALGIA 07/02/2013 MARV MANUEL DO 719.41 PAIN IN JOINT INVOLVING SHOULDER REGION 07/02/2013 MARV MANUEL DO 723.1 CERVICALGIA 07/02/2013 AXEL ETIENNE PSYD L 719.41 PAIN IN JOINT INVOLVING SHOULDER REGION 07/02/2013 AXEL ETIENNE PSYD L 723.1 CERVICALGIA 07/02/2013 AXEL ETIENNE PSYD L 719.41 PAIN IN JOINT INVOLVING SHOULDER REGION 07/02/2013 AXEL ETIENNE PSYD L 723.1 CERVICALGIA 07/02/2013 ERIK SAHNI APRN R 719.41 PAIN IN JOINT INVOLVING SHOULDER REGION 07/02/2013 EDNA SAHNI APRNINA R 723.1 CERVICALGIA 07/02/2013 AXEL ETIENNE PSYD L 719.41 PAIN IN JOINT INVOLVING SHOULDER REGION 07/02/2013 AXEL ETIENNE PSYD L 723.1 CERVICALGIA 07/02/2013 LAUREN PRICE APRN 719.41 PAIN IN JOINT INVOLVING SHOULDER REGION 07/02/2013 LAUREN PRICE APRN 723.1 CERVICALGIA 07/02/2013 AXEL ETIENNE PSYD 719.41 PAIN IN JOINT INVOLVING SHOULDER REGION 07/02/2013 AEXL ETIENNE PSYD 723.1 CERVICALGIA 07/02/2013 YEISON JUAREZ MD 719.41 PAIN IN JOINT INVOLVING SHOULDER REGION 07/02/2013 YEISON JUAREZ MD 723.1 CERVICALGIA 07/02/2013 TC AKINS APRN 719.41 PAIN IN JOINT INVOLVING SHOULDER REGION 07/02/2013 TC AKINS APRN 723.1 CERVICALGIA 07/02/2013 AXEL ETIENNE PSYD 719.41 PAIN IN JOINT INVOLVING SHOULDER REGION 07/02/2013 AXEL ETIENNE PSYD 723.1 CERVICALGIA 07/02/2013 TC AKINS APRN 719.41 PAIN IN JOINT INVOLVING SHOULDER REGION 07/02/2013 TC AKINS APRN 723.1 CERVICALGIA 10/30/2013 MARV MANUEL DO 726.10 DISORDERS OF BURSAE AND TENDONS IN SHOULDER REGION UNSPECIFIED 10/30/2013 AXEL ETIENNE PSYD L 726.10 DISORDERS OF BURSAE AND TENDONS IN SHOULDER REGION UNSPECIFIED 10/30/2013 AXEL ETIENNE PSYD L 726.10 DISORDERS OF BURSAE AND TENDONS IN SHOULDER REGION UNSPECIFIED 10/30/2013 ERIK SAHNI APRN R 726.10 DISORDERS OF BURSAE AND TENDONS IN SHOULDER REGION UNSPECIFIED 10/30/2013 AXEL ETIENNE PSYD ANN L 726.10 DISORDERS OF BURSAE AND TENDONS IN SHOULDER REGION UNSPECIFIED 10/30/2013 LAUREN PRICE APRN 726.10 DISORDERS OF BURSAE AND TENDONS IN SHOULDER REGION UNSPECIFIED 10/30/2013 AXEL ETIENNE PSYD ANN L 726.10 DISORDERS OF BURSAE AND TENDONS IN SHOULDER REGION UNSPECIFIED 10/30/2013 YEISON JUAREZ MD 726.10 DISORDERS OF BURSAE AND TENDONS IN SHOULDER REGION UNSPECIFIED 10/30/2013 TC AKINS APRN 726.10 DISORDERS OF BURSAE AND TENDONS IN SHOULDER REGION UNSPECIFIED 10/30/2013 AXEL ETIENNE PSYD ANN L 726.10 DISORDERS OF BURSAE AND TENDONS IN SHOULDER REGION UNSPECIFIED 10/30/2013 TC AKINS APRN 726.10 DISORDERS OF BURSAE AND TENDONS IN SHOULDER REGION UNSPECIFIED 11/27/2013 AXEL ETIENNE PSYD ANN L 311 DEPRESSIVE DISORDER NOS 11/27/2013 ERIK SAHNI APRN R 311 DEPRESSIVE DISORDER NOS 11/27/2013 AXEL ETIENNE PSYD ANN L 311 DEPRESSIVE DISORDER NOS 11/27/2013 LAUREN PRICE APRN 311 DEPRESSIVE DISORDER NOS 11/27/2013 AXEL ETIENNE PSYD ANN L 311 DEPRESSIVE DISORDER NOS 11/27/2013 YEISON JUAREZ MD 311 DEPRESSIVE DISORDER NOS 11/27/2013 TC AKINS APRN 311 DEPRESSIVE DISORDER NOS 11/27/2013 AXEL ETIENNE PSYD ANN L 311 DEPRESSIVE DISORDER NOS 11/27/2013 TC AKINS APRN 311 DEPRESSIVE DISORDER NOS 12/05/2013 EDNA SAHNI APRNINA R 292.85 DRUG-INDUCED SLEEP DISORDER 12/05/2013 AXEL ETIENNE PSYD L 292.85 DRUG-INDUCED SLEEP DISORDER 12/05/2013 ALUREN PRICE APRN 292.85 DRUG-INDUCED SLEEP DISORDER 12/05/2013 AXEL ETIENNE PSYD ANN L 292.85 DRUG-INDUCED SLEEP DISORDER 12/05/2013 YEISON JUAREZ MD 292.85 DRUG-INDUCED SLEEP DISORDER 12/05/2013 TC AKINS APRN 292.85 DRUG-INDUCED SLEEP DISORDER 12/05/2013 AXEL ETIENNE PSYD 292.85 DRUG-INDUCED SLEEP DISORDER 12/05/2013 TC AKINS APRN 292.85 DRUG-INDUCED SLEEP DISORDER 01/09/2014 AXEL ETIENNE PSYD L 296.80 MO BIPOLAR NOS 01/09/2014 LAUREN PRICE APRN 296.80 MO BIPOLAR NOS 01/09/2014 AXEL ETIENNE PSYD 296.80 MO BIPOLAR NOS 01/09/2014 YIESON JUAREZ MD 296.80 MO BIPOLAR NOS 01/09/2014 TC AKINS APRN 296.80 MO BIPOLAR NOS 01/09/2014 AXEL ETIENNE PSYD 296.80 MO BIPOLAR NOS 01/09/2014 TC AKINS APRN 296.80 MO BIPOLAR NOS Procedures Code Description Performed By Performed On [facility]bib[facility] Russell Su 07/11/2012 36385 H PYLORI (IN-HOUSE) 07/23/2012 85092 PSYCH DIAGNOSTIC EVALUATION 07/24/2012 56491 PSYTX PT&/FAMILY 45 MINUTES 09/04/2012 72386 STREP A (IN-HOUSE) 02/03/2013 58776 PSYTX PT&/FAMILY 45 MINUTES 02/07/2013 42636 PSYTX PT&/FAMILY 45 MINUTES 06/05/2013 12849 PSYTX PT&/FAMILY 45 MINUTES 07/11/2013 71952 XRAY SHOULDER RIGHT COMP 2 VIEWS 09/17/2013 Orthopedi Lauren Price 09/17/2013 28903 PSYTX PT&/FAMILY 45 MINUTES 10/06/2013 97214 PSYTX PT&/FAMILY 45 MINUTES 10/31/2013 92167 PSYTX PT&/FAMILY 45 MINUTES 11/27/2013 40457 PSYTX PT&/FAMILY 45 MINUTES 01/09/2014 02427 PSYTX PT&/FAMILY 45 MINUTES 02/02/2014 68622 PSYTX PT&/FAMILY 45 MINUTES 04/29/2014 Results Test Result Range CULTURE, URINE - 06/13/17 14:18 CULTURE, URINE, ROUTINE SEE NOTE NRG Encounters ACCT No. Visit Date/Time Discharge Status Pt. Type Provider Facility Loc./Unit Complaint [id number] 03/28/2013 13:50:50 ACT Document Registration [id number] 04/05/2018 09:30:00 04/05/2018 23:59:59 CLS Outpatient TC AKINS APRN [facility] [id number] 06/13/2017 12:05:00 Document Registration [id number] 08/03/2014 15:43:00 08/03/2014 23:59:59 CLS Outpatient TC AKINS APRN [id number] 07/06/2014 14:02:00 07/06/2014 23:59:59 CLS Outpatient AXEL ETIENNE PSYD [id number] 06/01/2014 15:57:00 06/01/2014 23:59:59 CLS Outpatient TC AKINS APRN [id number] 05/01/2014 15:41:00 05/01/2014 23:59:59 CLS Outpatient YEISON JUAREZ MD [id number] 04/29/2014 14:46:00 04/29/2014 23:59:59 CLS Outpatient AXEL ETIENNE PSYD [id number] 01/15/2014 15:46:00 01/15/2014 23:59:59 CLS Outpatient DEE OLIVAREZLAUREN Gabriel [id number] 01/09/2014 15:53:00 01/09/2014 23:59:59 CLS Outpatient AXEL ETIENNE PSYD [id number] 12/05/2013 09:32:00 12/05/2013 23:59:59 CLS Outpatient ERIK SAHNI APRN [id number] 11/27/2013 13:58:00 11/27/2013 23:59:59 CLS Outpatient AXEL ETIENNE PSYD [id number] 10/31/2013 11:00:00 10/31/2013 23:59:59 CLS Outpatient AXEL ETIENNE PSYD [id number] 10/30/2013 15:16:00 10/30/2013 23:59:59 CLS Outpatient MARV MANUEL DO [id number] 10/06/2013 15:50:00 10/06/2013 23:59:59 CLS Outpatient JOSE LARA DDS [id number] 09/16/2013 10:11:00 09/16/2013 23:59:59 CLS Outpatient ERIK SAHNI APRN [id number] 07/29/2013 00:00:00 07/29/2013 23:59:59 CLS Outpatient ALLEGRA ARANA DDS [id number] 07/10/2013 15:05:00 07/10/2013 23:59:59 CLS Outpatient AXEL ETIENNE PSYD [id number] 07/02/2013 14:55:00 07/02/2013 23:59:59 CLS Outpatient ERIK SAHNI APRN [id number] 06/05/2013 10:03:00 06/05/2013 23:59:59 CLS Outpatient AXEL ETIENNE PSYD [id number] 05/23/2013 16:00:00 05/23/2013 23:59:59 CLS Outpatient TC AIKNS APRN [id number] 03/05/2013 13:43:00 03/05/2013 23:59:59 CLS Outpatient ARYAN TERAN APRN [id number] 02/11/2013 11:23:00 02/11/2013 23:59:59 CLS Outpatient MARV MANUEL DO [id number] 02/05/2013 15:11:00 02/05/2013 23:59:59 CLS Outpatient AXEL ETIENNE PSYD [id number] 02/03/2013 13:32:00 02/03/2013 23:59:59 CLS Outpatient ARYAN TERAN APRN [id number] 07/23/2012 13:23:00 07/23/2012 23:59:59 CLS Outpatient ALBA EVANS APRN [id number] 07/10/2012 16:29:00 07/10/2012 23:59:59 CLS Outpatient [id number] 06/18/2012 14:29:00 06/18/2012 23:59:59 CLS Outpatient [id number] 04/27/2011 10:07:00 04/27/2011 23:59:59 CLS Outpatient [id number] 09/02/2012 10:52:00 Document Registration
[2018-04-17] MEDS ORDERED: TRIM/SULFAMETH 160/800 (SEPTRA DS) TAB PO STA (02:51)
[2018-04-17] MEDS ORDERED: HYDROcodone/APAP 7.5 MG/325 MG (LORTAB, LORCET PLUS) TABLET PO STA (02:51)
--- NOTE | 2018-04-17 02:58 | ED EENT ---
History of Present Illness General Chief Complaint: Facial Problems Stated Complaint: LEFT CHEEK INFECTION,VERY SWOLLEN Nursing Triage Note: Pt reports swelling to L cheek starting yesterday (04/16) and worsening through the day. Pt denies any dental issues prior to swelling. Source: patient Exam Limitations: no limitations History of Present Illness Date Seen by Provider: Apr 17, 2018 Time Seen by Provider: 02:45 Initial Comments Here with onset of left facial swelling starting yesterday and worsening throughout the day. Doesn't have any dental problems. States he had ingrown hair that he picked out and shortly after that is when the swelling started. No fevers. Does have pain related to that and did take ibuprofen tonight. Denies nausea or vomiting. Timing/Duration: gradual, yesterday Severity: moderate Location: facial Prearrival Treatment: over the counter meds Modifying Factors: Improves With Rest Associated Symptoms: No cough, No drooling; facial pain/swelling; No fever, No sore throat, No tooth pain Allergies and Home Medications Allergies Coded Allergies: No Known Drug Allergies (Unverified , 12/19/09) Home Medications Doxycycline Hyclate 100 Mg Capsule, 0 PO DAILY 1 CAP Q12HR TODAY, THE 1 CAP DAILY Prescribed by: KATHERYN MOY on 12/19/09307 Oxycodone Hcl/Acetaminophen 1 Each Tablet, 1 EACH PO Q4H Prescribed by: KATHERYN MOY on 12/19/09307 Patient Home Medication List Home Medication List Reviewed: Yes Review of Systems Review of Systems Constitutional: see HPI; No chills, No fever Eyes: No Symptoms Reported Ears: No Symptoms Reported Nose: no symptoms reported Mouth: no symptoms reported Throat: no symptoms reported Respiratory: No short of breath, No wheezing Cardiovascular: no symptoms reported Skin: see HPI, change in color, lesions Neurological: No Symptoms Reported Past Zwbkbxs-Pdqvwm-Dhpklw Hx Past Med/Social Hx: Reviewed Nursing Past Med/Soc Hx Patient Social History Alcohol Use: Denies Use Recreational Drug Use: No Smoking Status: Current Everyday Smoker Type Used: Cigarettes Recent Foreign Travel: No Contact w/Someone Who Travel: No Recent Infectious Disease Expo: No Recent Hopitalizations: No Seasonal Allergies Seasonal Allergies: No Past Medical History Surgeries: No Respiratory: No Cardiac: No Neurological: No Genitourinary: No Gastrointestinal: No Musculoskeletal: No Endocrine: No HEENT: No Cancer: No Psychosocial: No Integumentary: No Blood Disorders: No Family Medical History Reviewed Nursing Family Hx No Pertinent Family Hx Physical Exam Vital Signs Vital Signs - First Documented 04/17/18 02:16 Temp 99.3 Pulse 105 Resp 18 B/P (MAP) 127/84 (98) Pulse Ox 97 O2 Delivery Room Air Height, Weight, BMI Height: 5'10.00" Weight: 175lbs. oz. 79.764240dr; BMI Method:Stated General Appearance: WD/WN, no apparent distress Eyes: bilateral eye normal inspection, bilateral eye PERRL, bilateral eye EOMI Ears: bilateral ear auricle normal, bilateral ear canal normal, bilateral ear TM normal Nose: normal inspection Mouth/Throat: pharynx normal; No dental tenderness; other (swelling noted within the cheek on the left but does not appear to involve any of the dental area or intraoral otherwise.) Neck: full range of motion, supple Cardiovascular: regular rate, rhythm, no murmur Respiratory: lungs clear, normal breath sounds Gastrointestinal: non tender, soft Neurologic/Psychiatric: alert, oriented x 3 Skin: warm/dry, other (2 x 2 centimeter area of induration to the left cheek underneath small scrape her wound where he states that he had ingrown hair that he picked at. No obvious fluctuance. Redness noted on the cheek but does not go above the level of the cheek bone. Very tender in the area. No difficulty with swallowing and had change in voice.) Progress/Results/Core Measures Results/Orders My Orders Orders - ADELSO MAGAÑA MD Ceftriaxone For Iv Use (Rocephin For I (04/17/18 03:00) Sulfamethoxazole/Trimet Ds Tab (Bactrim (04/17/18 02:51) Lidocaine 1% Inj 20 Ml (Xylocaine 1% Inj (04/17/18 03:00) Hydrocodone/Apap 7.5/325 Tab (Lortab 7. (04/17/18 02:51) Dexamethasone Injection (Decadron Inject (04/17/18 03:00) Ceftriaxone For Im Use (Rocephin For Im (04/17/18 09:00) Vital Signs/I&O 04/17/18 02:16 Temp 99.3 Pulse 105 Resp 18 B/P (MAP) 127/84 (98) Pulse Ox 97 O2 Delivery Room Air Blood Pressure Mean: 98 Progress Progress Note : Progress Note Seen and evaluated. Rocephin 1 g IM and Bactrim DS one tab by mouth given. Hydrocodone 7.5/325 one tab by mouth given. We will give Decadron 10 mg IM to help reduce the swelling as well. Discussed options and we will try this outpatient at this point with the understanding that he will return if it is worse at all. Discharged home with return precautions. Patient verbalize understanding instructions and agreement with plan. Departure Impression Primary Impression: Cellulitis of face Disposition: HOME, SELF-CARE Condition: Stable Departure-Patient Inst. Decision time for Depature: 03:13 Referrals: [facility] [place] Primary Care Physician Patient Instructions: Cellulitis (Skin Infection), Adult (DC) Add. Discharge Instructions: All discharge instructions reviewed with patient and/or family. Voiced understanding. You may take ibuprofen 800 mg every 8 hours as needed for pain. Take other medication as prescribed. It is very important that you get your prescriptions filled today and take them as directed. Follow-up with your Dr. in one to 2 days. Return for worse pain, some falling, fever, weakness, breathing problems , difficulty with swallowing or talking or other concerns as needed. Scripts Sulfamethoxazole/Trimethoprim (Sulfamethoxazole-Tmp Ds Tablet) 1 Each Tablet 1 EACH PO BID, #14 TAB 0 Refills Prov: ADELSO MAGAÑA MD 04/17/18 Cephalexin (Cephalexin) 500 Mg Tablet 500 MG PO QID, #28 TAB 0 Refills Prov: ADELSO MAGAÑA MD 04/17/18 ADELSO MAGAÑA MD Apr 17, 2018 02:58
[2018-04-17] MEDS ORDERED: cefTRIAXone 1 GM/10 ML for IV (ROCEPHIN) IM ONE (03:00)
[2018-04-17] MEDS ORDERED: LIDOCAINE 1% INJ 20 ML 20 ML VIAL INJ ONE (03:00)
[2018-04-17] MEDS ORDERED: DEXAMETHASONE 10 MG/ML (DECADRON) 1 ML VIAL IM ONE (03:00)
[2018-04-17] MEDS ORDERED: cefTRIAXone 1 GM/10 ML for IV (ROCEPHIN) ONE (03:04)
[2018-04-17] MEDS ORDERED: CEPH500T PO (03:15)
[2018-04-17] MEDS ORDERED: SULF-222 PO (03:15)
[2018-04-17] MEDS ORDERED: ACHD5005 PO (03:16)
[2018-04-17 03:39] VITALS: BP 126/73
[2018-04-17] MEDS ORDERED: cefTRIAXone 1,000 MG/2.86 ml vial (IM ONLY) IM SCH (09:00)
== END 2018-04-17 03:39 | disposition home or self-care (01) ==
LOC: EDUNIT# 01:47 → ER 01:51
DX: L03.211 Cellulitis of face (principal); F17.210 Nicotine dependence, cigarettes, uncomplicated
CPT/HCPCS: 96372; 99284